=== PATIENT | male | born 1955 | race Two or more races ===

== ENCOUNTER 2018-09-15 08:06 | Day surgery (SDC) | payer MEDICAID ==
[~2018-09-15] VITALS: Ht 162.6 cm; Wt 72.6 kg
[2018-09-15] VITALS (9 sets, daily range): BP systolic 115–125; BP diastolic 67–75
[~2018-09-15 08:06] MED LIST: NO MEDICATION
[2018-09-15] MEDS ORDERED: LR 1000ml 1,000 ML IVLG SCH (11:18)
--- NOTE | 2018-09-15 11:22 | Anethesia Preoperative Eval ---
Anesthesia Pre-op PMH/ROS General Date of Evaluation: Sep 15, 2018 Time of Evaluation: 11:23 Anesthesiologist: Lilliam ASA Score: ASA 3 Mallampati Score Class I : Soft palate, uvula, fauces, pillars visible Class II: Soft palate, uvula, fauces visible Class III: Soft palate, base of uvula visible Class IV: Only hard plate visible Mallampati Classification: Class II Surgeon: William Diagnosis: Rectal Pain Surgical Procedure: EGD with EUS Family History: no anesthesia problems Allergies: Coded Allergies: No Known Allergies (Unverified , 07/17/18) Medications: see eMAR Patient NPO?: Yes Past Medical History Gastrointestinal/Genitourinary: Reports: other - [place]/Rectal CA Hematology/Immune: Reports: anemia PSxH Narrative: Varicose Vein SX Anesthesia Pre-op Phys. Exam Physician Exam Last Vital Signs Date Time Temp Pulse Resp B/P (MAP) Pulse Ox O2 Delivery O2 Flow Rate FiO2 09/15/18 08:50 98.1 54 20 124/67 100 Room Air Constitutional: NAD Neurologic: CN 2-12 intact Cardiovascular: RRR Respiratory: CTA Gastrointestinal: S/NT/ND Airway Exam Mallampati Score: Class II MO: full ROM: limited Teeth: missing, intact Anesthesia Pre-op A/P Risk Assessment & Plan Assessment: ASA 3 Plan: TIVA Status Change Before Surgery: Oswlado Zepeda MD Sep 15, 2018 11:22
--- NOTE | 2018-09-15 11:26 | Immediate Post-Op Evaluation ---
Immediate Post-Op Evalulation Immediate Post-Op Evalulation Procedure: EGD with EUS Date of Evaluation: Sep 15, 2018 Time of Evaluation: 12:23 IV Fluids: 400 LR Blood Products: 0 Estimated Blood Loss: 3 Urinary Output: 0 Blood Pressure Systolic: 117 Blood Pressure Diastolic: 69 Pulse Rate: 53 Respiratory Rate: 16 O2 Sat by Pulse Oximetry: 100 Temperature (Fahrenheit): 97.2 Pain Score (1-10): 2 Nausea: No Vomiting: No Complications 0 Patient Status: awake, reacts, patent, none Hydration Status: adequate Oswaldo Vyas MD Sep 15, 2018 11:26
--- NOTE | 2018-09-15 11:27 | 48 Hour Post Anesthesia Eval ---
Post Anesthesia Evaluation Procedure: EGD with EUS Date of Evaluation: Sep 15, 2018 Time of Evaluation: 14:34 Blood Pressure Systolic: 122 0: 81 Pulse Rate: 67 Respiratory Rate: 18 Temperature (Fahrenheit): 97.6 O2 Sat by Pulse Oximetry: 99 Airway: patent Nausea: No Vomiting: No Pain Intensity: 2 Hydration Status: adequate Cardiopulmonary Status: Stable Mental Status/LOC: patient returned to baseline Follow-up Care/Observations: 0 Post-Anesthesia Complications: 0 Follow-up care needed: ready to discharge Oswaldo Vyas MD Sep 15, 2018 11:27
[2018-09-15] MEDS ORDERED: oxyCODONE HCL/Acetaminophen 5/325mg ORAL PRN (11:30)
[2018-09-15] MEDS ORDERED: HYDROcodone/Acetamin 5/325 tab ORAL PRN (11:30)
[2018-09-15] MEDS ORDERED: Propofol 200mg/20ml IV ONE ×2 (11:30)
[2018-09-15] MEDS ORDERED: Ketorolac 30mg Inj IV PRN ×2 (11:30)
[2018-09-15] MEDS ORDERED: LORazepam Inj 2mg/ml 1ml IV PRN (11:30)
[2018-09-15] MEDS ORDERED: Meperidine 50mg/ml Inj(FOR RIGORS ONLY) IVP PRN (11:30)
[2018-09-15] MEDS ORDERED: Hydromorphone 0.5mg/0.5ml inj IVP PRN (11:30)
[2018-09-15] MEDS ORDERED: Atropine Sulfate 0.4mg/ml inj IVP PRN (11:30)
[2018-09-15] MEDS ORDERED: Labetalol 5mg/ml 20ml vial IV PRN (11:30)
[2018-09-15] MEDS ORDERED: Midazolam 2mg/2ml Inj IVP PRN (11:30)
[2018-09-15] MEDS ORDERED: DiphenhydrAMINE 50mg/ml Inj IVP PRN (11:30)
[2018-09-15] MEDS ORDERED: fentaNYL 100 mcg/2 mL IV PRN (11:30)
[2018-09-15] MEDS ORDERED: Lidocaine 1% MPF 10mg/ml 5ml ONE (11:30)
[2018-09-15] MEDS ORDERED: Metoclopramide 10mg/2ml Inj IVP PRN (11:30)
[2018-09-15] MEDS ORDERED: HYDROcodone/Acetamin 7.5/325 tab ORAL PRN (11:30)
--- NOTE | 2018-09-15 12:00 | Endoscopy Procedure Note ---
Endoscopy Procedure Note General Indication for Procedure: rectal mass Procedures Performed: flexible sigmoidoscopy, other - EUS Operative Findings/Diagnosis: same Specimen: none Pt Tolerated Procedure Well: Yes Estimated Blood Loss: none Anesthesia Anesthesiologist: maria m Anesthesia: MAC Inserted Devices Implant(s) used?: No GI Core Measures 50 yrs or older w/o bx or poly: Not Applicable 10yrs. F/U recommended: Not Applicable Sam Thomas MD Sep 15, 2018 12:00
--- NOTE | 2018-09-15 12:09 | Cardiology Report ---
APPROVED REPORT EKG Measurement Heart [id number] IN [id number] Sinus bradycardia Otherwise normal ECG
--- NOTE | 2018-09-15 19:45 | Procedure Note ---
DATE OF PROCEDURE: 09/15/2018 SURGEON: Sam Thomas M.D. PROCEDURE: Flexible colonoscopy and endoscopic ultrasound. ANESTHESIA: Per Dr. Vyas. INSTRUMENT: Pediatric colonoscope and also EUS radial scope. INDICATION: Rectal mass. The procedure, risks, benefits, and possible consequences, including hemorrhage, aspiration, perforation and infection, and alternative treatments, were explained to the patient/legal guardian by Dr. Sam Thomas and the patient/legal guardian understood and accepted these risks. PROCEDURE IN DETAIL: After informed consent was obtained and the patient was adequately sedated, first rectal exam was performed, which was normal. Then, a pediatric colonoscope was advanced from anus into the rectum. At about 12-13 cm from the anal verge, we encountered a large fungating mass obstructing the lumen and could not pass the scope through. At this time, the pediatric colonoscope was removed and EUS radial scope was reintroduced. Again, we could not pass the scope beyond the mass. Mass was very large invading the muscularis propria layer and into the subcutaneous fat, so this is definitely a T3 lesion. We could not pass the scope higher up to evaluate for lymphadenopathy, but there was no obvious lymph node seen around the tumor. At this time, the scope was retrieved and procedure was terminated. SUMMARY OF FINDINGS: A large fungating mass in the rectum at about 12-13 cm from the anal verge obstructing the lumen, unable to pass the scope through. This mass based on the EUS guidelines is definitely T3, cannot evaluate for lymphadenopathy since we could not pass the scope up. RECOMMENDATIONS: This patient needs to be seen by oncologist for radiation and chemotherapy based on the guidelines given this is T3, to shrink the tumor and possibly followed by surgery when the tumor is smaller. Sam Thomas M.D. DR: Maile JOB#: [id number] CC:
--- NOTE | 2018-09-17 12:10 | Short Stay Surgery H&P ---
History of Present Illness History of Present Illness Chief Complaint see recent consult note HPI Fab Lauren is a 63 year old male who was admitted on for Rectal Cancer Patient History Allergies: Coded Allergies: No Known Allergies (Unverified , 07/17/18) Medication History Miscellaneous Medications [No Medication ], (Reported) Physical Exam Vital Signs Last Vital Signs Date Time Temp Pulse Resp B/P (MAP) Pulse Ox O2 Delivery O2 Flow Rate FiO2 09/15/18 13:28 50 20 116/71 99 Room Air 09/15/18 13:00 97.6 09/15/18 12:20 6 Plan Attestation Are the patient's medical conditions optimized for surgery? Sam Thomas MD Sep 17, 2018 12:10
--- NOTE | 2018-09-17 12:10 | Pre-Procedure Note/Attestation ---
Pre-Procedure Note/Attestation Complete Prior to Procedure Planned Procedure: not applicable Procedure Narrative: rectal EUS Indications for Procedure Pre-Operative Diagnosis: rectal mass Attestation I attest that I discussed the nature of the procedure; its benefits; risks and complications; and alternatives (and the risks and benefits of such alternatives ), prior to the procedure, with the patient (or the patient's legal field representative). I attest that, if there was a reasonable possibility of needing a blood transfusion, the patient (or the patient's legal field representative) was given the [facility] standardized written summary, pursuant to the Garth Mili Blood Safety Act ([place] Health and Safety Code # 1645, as amended). I attest that I re-evaluated the patient just prior to the surgery and that there has been no change in the patient's H&P, except as documented below: Sam Thomas MD Sep 17, 2018 12:10
== END 2018-09-15 13:30 | disposition home or self-care (01) ==
LOC: GAS 08:06
DX: K62.9 Disease of anus and rectum, unspecified (principal); R00.1 Bradycardia, unspecified; Z85.038 Personal history of other malignant neoplasm of large intestine
CPT/HCPCS: 45341; 93005; J2250; J2704; Z7512; 94003; 94150